=== PATIENT | male | born 1980 | race African-American/Black ===

== ENCOUNTER 2020-12-19 18:54 | Emergency (ER) | payer SELFPAY ==
[2020-12-20 10:27] LABS: SARS-CoV-2 PCR by NAA Not Detected (NotDetected)
== END 2020-12-19 20:57 | disposition home or self-care (01) ==
LOC: ERS 18:54
DX: R05.9 Cough, unspecified (principal); R53.81 Other malaise; R53.83 Other fatigue; Z20.822 Contact with and (suspected) exposure to COVID-19; F17.210 Nicotine dependence, cigarettes, uncomplicated
CPT/HCPCS: 99283; U0003; U0005

== ENCOUNTER 2022-03-02 13:41 | Emergency (ER) | payer SELFPAY | END 2022-03-02 14:05 | disposition home or self-care (01) | LOC: ERS 13:41 | DX: J11.1 Influenza due to unidentified influenza virus with other respiratory manifestations (principal); F17.210 Nicotine dependence, cigarettes, uncomplicated | CPT/HCPCS: 99283 ==